=== PATIENT | female | born 1980 | race Caucasian/White ===

== ENCOUNTER 2016-08-17 11:53 | Emergency (ER) | payer SELFPAY ==
[~2016-08-17] VITALS: Ht 170.2 cm; Wt 116.5 kg
[~2016-08-17 11:53] MED LIST: TAB-TAB PO; TRAM50 PO; TYLE3 PO; ZOFR4TAB3 SL
[2016-08-17 11:55] VITALS: BP 141/86; PULSE 77; RESP 16; TEMP 98.2; O2SAT 99
--- NOTE | 2016-08-17 11:58 | PD ---
Physical Exam Time Seen by Provider: 11:57 Narrative 36 y/o female here with 5 days of cough and congestion. Vital signs reviewed. Seen at triage desk. Awaiting bed placement. Data Data Last Documented VS Vital Signs Date Time Temp Pulse Resp B/P Pulse Ox O2 Delivery O2 Flow Rate FiO2 08/17/16 11:55 98.2 77 16 141/86 99 Room Air [facility] Medical Record Reviewed: Yes Supervised Visit with ARLEN: No Jeramie Allen Aug 17, 2016 11:58
--- NOTE | 2016-08-17 12:21 | PD ---
HPI Chief Complaint: Cold / Flu Symptoms Time Seen by Provider: 12:30 Travel History International Travel<30 days: No Contact w/Intl Traveler<30days: No Traveled to known affect area: No History of Present Illness HPI 36-year-old female presents the emergency department with five-day history of upper respiratory type symptoms which have now settled in her chest. Patient has had hot and cold flashes but denies specific fever. She has had a productive cough until recently. Patient has pain in the chest from coughing , and audible wheezing but denies significant shortness of breath. No history of asthma in the past. Patient has had a history of bronchitis. She is a nonsmoker. She denies significant sore throat or upper respiratory symptoms at this time. She's been taking [id number] medications without improvement. She does have a history of nausea and vomiting at the beginning but not currently. Her pain is described as an 8 out of 10 with cough. She is allergic to morphine but no other drug allergies. PFSH Past Medical History ?: Not : 1 Para: 1 Miscarriage: 0 : 0 Ovarian Cysts: Yes (LEFT ) Dilation and Curettage (D&C): Yes Past Surgical History Abdominal Surgery: Yes () Section: Yes (x 1) Hysterectomy: Yes Social History Alcohol Use: No Tobacco Use: No Substance Use: No Allergies-Medications (Allergen,Severity, Reaction): Coded Allergies: Morphine (Verified Allergy, Severe, PAIN IN BODY, 05/26/11) Reported Meds & Prescriptions Reported Meds & Active Scripts Active Reported Levothyroxine (Levothyroxine Sodium) 50 Mcg Tab 50 Mcg PO DAILY Gabapentin 300 Mg Cap 300 Mg PO DAILY Omeprazole 20 Mg Tab 20 Mg PO DAILY Review of Systems Except as stated in HPI: all other systems reviewed are Neg General / Constitutional: Positive: Chills, No: Fever Eyes: No: Visual changes HENT: Positive: Sore Throat, Rhinitis, Rhinorrhea, Congestion, No: Headaches, Nosebleed, Neck Stiffness, Ear Discharge, Earache Cardiovascular: No: Chest Pain or Discomfort Respiratory: Positive: Cough, Shortness of Breath, Wheezing, Pleuritic Pain Gastrointestinal: Positive: Nausea, Vomiting, No: Diarrhea (now resolved.), Abdominal Pain Genitourinary: No: Dysuria Musculoskeletal: No: Pain Skin: No Rash Neurologic: No: Weakness Psychiatric: No: Depression Endocrine: No: Polydipsia Hematologic/Lymphatic: No: Easy Bruising Physical Exam Narrative GENERAL: Patient appears in mild distress. SKIN: Warm and dry. Normal color. Normal turgor. HEAD: Atraumatic. Normocephalic. No sinus tenderness. EYES: Pupils equal and round. No scleral icterus. No injection or drainage. ENT: No nasal bleeding or discharge. Mucous membranes pink and moist. TMs are clear bilaterally. Pharynx is normal. Airway is patent. NECK: Trachea midline. Supple and nontender. CARDIOVASCULAR: Regular rate and rhythm. RESPIRATORY: No accessory muscle use. Diffuse wheezes throughout to auscultation. Breath sounds equal bilaterally. No rhonchi or rales. GASTROINTESTINAL: Abdomen soft, non-tender, nondistended. Hepatic and splenic margins not palpable. MUSCULOSKELETAL: Extremities without clubbing, cyanosis, or edema. No obvious deformities. NEUROLOGICAL: Awake and alert. No obvious cranial nerve deficits. Motor grossly within normal limits. Five out of 5 muscle strength in the arms and legs. Normal speech. PSYCHIATRIC: Appropriate mood and affect; insight and judgment normal. Data Data Last Documented VS Vital Signs Date Time Temp Pulse Resp B/P Pulse Ox O2 Delivery O2 Flow Rate FiO2 08/17/16 11:55 98.2 77 16 141/86 99 Room Air Orders Prednisone (Deltasone) (08/17/16 12:45) Albuterol-Ipratropium Neb (Duoneb Neb) (08/17/16 12:45) Azithromycin (Zithromax) (08/17/16 12:45) Ceftriaxone Inj (Rocephin Inj) (08/17/16 12:45) Lidocaine 1% Inj (50 Ml) (Xylocaine 1% I (08/17/16 12:45) [facility] Medical Decision Making Medical Screen Exam Complete: Yes Emergency Medical Condition: Yes Differential Diagnosis Upper respiratory infection. Bronchitis. Wheezing. Narrative Course Patient is medically stable at time of exam. Chest x-ray is not felt warranted at this time based on patient's history and physical. Patient is given DuoNeb 1 Patient is given prednisone 60 mg by mouth. Patient is given first dose of azithromycin 500 mg by mouth as well as Rocephin 1000 mg IM. Patient will be continued on azithromycin 500 mg daily 5 days. Patient also continued on prednisone 20 mg twice a day 5 days. Patient is given albuterol metered-dose inhaler 2 puffs every 6 hours when necessary wheezing. Patient can take Tylenol as needed for pain or fever. Patient is to rest and push fluids and follow up if symptoms do not worsen over the next several days. Diagnosis Primary Impression: Acute wheezy bronchitis Referrals: [facility] Primary Care Physician Patient Instructions: Acute Bronchitis (ED), General Instructions, How to Use a Metered-Dose Inhaler (ED), Prednisone (By mouth) Additional Instructions: Chest x-ray is not felt warranted at this time based on patient's history and physical. Patient is given DuoNeb 1 Patient is given prednisone 60 mg by mouth. Patient is given first dose of azithromycin 500 mg by mouth as well as Rocephin 1000 mg IM. Patient will be continued on azithromycin 500 mg daily 5 days. Patient also continued on prednisone 20 mg twice a day 5 days. Patient is given albuterol metered-dose inhaler 2 puffs every 6 hours when necessary wheezing. Patient can take Tylenol as needed for pain or fever. Patient is to rest and push fluids and follow up if symptoms do not worsen over the next several days. Med/Other Pt SpecificInfo: Prescription(s) given Scripts Prednisone 20 Mg Tab20 Mg PO BID #10 TAB Prov:Melo Betts MD 08/17/16 Azithromycin 500 Mg Pbl420 Mg PO DAILY #3 TAB Prov:Melo Betts MD 08/17/16 Albuterol 18 GM Inh (Ventolin Hfa 18 GM Inh)90 Mcg/Act Aer2 Puff INH Q4-6H PRN ( SHORTNESS OF BREATH) #1 INHALER Prov:Melo Betts MD 08/17/16 Disposition: 01 DISCHARGE HOME Condition: Stable Carlos Saeed Aug 17, 2016 12:21
[2016-08-17] MEDS ORDERED: GABA300C5 PO (12:35)
[2016-08-17] MEDS ORDERED: LEVO50TA4 PO (12:35)
[2016-08-17] MEDS ORDERED: OMEP20TA PO (12:35)
[2016-08-17] MEDS ORDERED: LIDOCAINE HCL 1% 50 ML VIAL INFIL ONE (12:45)
[2016-08-17] MEDS ORDERED: cefTRIAXone 500 MG VIAL IM ONE (12:45)
[2016-08-17] MEDS ORDERED: AZITHROMYCIN 250 MG TAB PO ONE (12:45)
[2016-08-17] MEDS ORDERED: RESP: ALBUTEROL 2.5 MG/IPRATROPIUM 0.5 MG NEB (SCH) INH ONE (12:45)
[2016-08-17] MEDS ORDERED: predniSONE 20 MG TAB PO ONE (12:45)
[2016-08-17] MEDS ORDERED: PRED20 PO (13:33)
[2016-08-17] MEDS ORDERED: VENTAER INH (13:33)
[2016-08-17] MEDS ORDERED: AZIT500T2 PO (13:33)
== END 2016-08-17 13:49 | disposition home or self-care (01) ==
LOC: NEPK 11:53
DX: J20.9 Acute bronchitis, unspecified (principal)
CPT/HCPCS: 94664; 96372; 99284; J0696; J7512

== ENCOUNTER 2017-07-22 11:44 | Emergency (ER) | payer SELFPAY ==
[~2017-07-22] VITALS: Ht 170.2 cm; Wt 114.0 kg
[~2017-07-22 11:44] MED LIST changes: +AZIT500T2 PO; +GABA300C5 PO; +LEVO50TA4 PO; +OMEP20TA93 PO; +PRED20 PO; -TAB-TAB PO; -TRAM50 PO; -TYLE3 PO; +VENTAER INH; -ZOFR4TAB3 SL
[2017-07-22 11:52] VITALS: BP 133/77; PULSE 84; RESP 18; TEMP 98.2; O2SAT 98
[2017-07-22] MEDS ORDERED: SODIUM CHLOR 0.9% 1000 ML INJ 1,000 ML IV ONE (12:28)
[2017-07-22] MEDS ORDERED: diphenhydrAMINE HCL 50 MG/ML VIAL IVP ONE (12:30)
[2017-07-22] MEDS ORDERED: DEXAMETHASONE SOD PHOS 20 MG/5 ML VIAL IV PUSH ONE (12:30)
[2017-07-22] MEDS ORDERED: SODIUM CHLORIDE 0.9% FLUSH 10 ML FLUSH IVF PRN (12:30)
[2017-07-22] MEDS ORDERED: KETOROLAC TROMETHAMINE 30 MG/ML (IVP) VIAL IVP ONE (12:30)
[2017-07-22] MEDS ORDERED: PROCHLORPERAZINE INJ 10 MG/2 ML VIAL IVP ONE (12:30)
--- NOTE | 2017-07-22 12:40 | PD ---
HPI Chief Complaint: Headache Time Seen by Provider: 12:09 Travel History International Travel<30 days: No Contact w/Intl Traveler<30days: No Traveled to known affect area: No History of Present Illness HPI 37-year-old woman presents emerged from complaining of headache. Said migraines in the past and this feels similar but has been much more persistent and severe than her typical migraines. Patient feels generally ill like she has an infection and thinks that this was causing the headache to become worse. She has phonophobia and photophobia which is typical for her. Headache is in a bandlike distribution around her entire head. She had nausea but no vomiting. No fevers or chills. Review of systems positive for a little bit of spots of blood in the urine which she states is atypical for her. She states that she is followed for adrenal disease, but is taking just herbs and vitamins 4. States she also has low thyroid, and early menopause. She had a hysterectomy which was young for cervical cancer but the left one ovary. She states her family does tend to have menopause early. She has some visual changes that she describes as intermittent blurry vision that she attributes to her adrenal disease. No other complaints. History Past Medical History Narrative Medical Reported history of low thyroid, adrenal dysfunction, menopause Influenza Vaccination: No : 1 Para: 1 Dilation and Curettage (D&C): Yes Social History Alcohol Use: No Tobacco Use: No Allergies-Medications (Allergen,Severity, Reaction): Coded Allergies: morphine (Unverified Allergy, Severe, PAIN IN BODY, 07/22/17) Reported Meds & Prescriptions Reported Meds & Active Scripts Active No Active Prescriptions or Reported Medications Review of Systems Except as stated in HPI: all other systems reviewed are Neg Physical Exam Narrative GENERAL: Well-appearing 37-year-old woman, no acute distress. SKIN: Focused skin assessment warm/dry. HEAD: Atraumatic. Normocephalic. EYES: Pupils equal and round. No scleral icterus. No injection or drainage. ENT: No nasal bleeding or discharge. Mucous membranes pink and moist. NECK: Trachea midline. No JVD. No meningismus per CARDIOVASCULAR: Regular rate and rhythm. No murmur appreciated. RESPIRATORY: No accessory muscle use. Clear to auscultation. Breath sounds equal bilaterally. GASTROINTESTINAL: Abdomen soft, non-tender, nondistended. Hepatic and splenic margins not palpable. MUSCULOSKELETAL: No obvious deformities. No clubbing. No cyanosis. No edema. NEUROLOGICAL: Awake and alert. No obvious cranial nerve deficits. Motor grossly within normal limits. Normal speech. PSYCHIATRIC: Appropriate mood and affect; insight and judgment normal. Data Data Last Documented VS Vital Signs Date Time Temp Pulse Resp B/P (MAP) Pulse Ox O2 Delivery O2 Flow Rate FiO2 07/22/17 12:46 76 18 122/77 (92) 99 Room Air 07/22/17 11:52 98.2 Orders Orders Complete Blood Count With Diff (07/22/17 12:28) Comprehensive Metabolic Panel (07/22/17 12:28) Ct Brain W/O Iv Contrast(Rout) (07/22/17 12:28) Ecg Monitoring (07/22/17 12:28) Iv Access Insert/Monitor (07/22/17 12:28) Oximetry (07/22/17 12:28) Sodium Chloride 0.9% Flush (Ns Flush) (07/22/17 12:30) Ketorolac Inj (Toradol Inj) (07/22/17 12:30) Prochlorperazine Inj (Compazine Inj) (07/22/17 12:30) Diphenhydramine Inj (Benadryl Inj) (07/22/17 12:30) Sodium Chlor 0.9% 1000 Ml Inj (Ns 1000 M (07/22/17 12:28) Dexamethasone Inj (Decadron Inj) (07/22/17 12:30) Urinalysis - C+S If Indicated (07/22/17 12:49) Labs Laboratory Tests Test 07/22/17 12:40 07/22/17 12:51 White Blood Count 4.6 TH/MM3 Red Blood Count 4.46 MIL/MM3 Hemoglobin 14.5 GM/DL Hematocrit 41.9 % Mean Corpuscular Volume 93.9 FL Mean Corpuscular Hemoglobin 32.4 PG Mean Corpuscular Hemoglobin Concent 34.5 % Red Cell Distribution Width 13.9 % Platelet Count 311 TH/MM3 Mean Platelet Volume 7.2 FL Neutrophils (%) (Auto) 46.8 % Lymphocytes (%) (Auto) 40.9 % Monocytes (%) (Auto) 9.2 % Eosinophils (%) (Auto) 2.1 % Basophils (%) (Auto) 1.0 % Neutrophils # (Auto) 2.2 TH/MM3 Lymphocytes # (Auto) 1.9 TH/MM3 Monocytes # (Auto) 0.4 TH/MM3 Eosinophils # (Auto) 0.1 TH/MM3 Basophils # (Auto) 0.0 TH/MM3 CBC Comment DIFF FINAL Differential Comment Blood Urea Nitrogen 11 MG/DL Creatinine 1.17 MG/DL Random Glucose 77 MG/DL Total Protein 7.3 GM/DL Albumin 4.0 GM/DL Calcium Level 8.8 MG/DL Alkaline Phosphatase 73 U/L Aspartate Amino Transf (AST/SGOT) 27 U/L Alanine Aminotransferase (ALT/SGPT) 23 U/L Total Bilirubin 0.3 MG/DL Sodium Level 140 MEQ/L Potassium Level 4.4 MEQ/L Chloride Level 106 MEQ/L Carbon Dioxide Level 26.7 MEQ/L Anion Gap 7 MEQ/L Estimat Glomerular Filtration Rate 53 ML/MIN Urine Color YELLOW Urine Turbidity HAZY Urine pH 5.0 Urine Specific [place] 1.028 Urine Protein NEG mg/dL Urine Glucose (UA) NEG mg/dL Urine Ketones TRACE mg/dL Urine Occult Blood NEG Urine Nitrite NEG Urine Bilirubin NEG Urine Urobilinogen 2.0 mg/dL Urine Leukocyte Esterase NEG Urine RBC 1 /hpf Urine WBC 2 /hpf Urine Squamous Epithelial Cells 2 /hpf Urine Bacteria OCC /hpf Urine Hyaline Casts 1 /lpf Urine Mucus FEW /lpf Microscopic Urinalysis Comment CULT NOT INDICATED MDM Medical Decision Making Medical Screen Exam Complete: Yes Emergency Medical Condition: Yes Interpretation(s) LABS: CBC is unremarkable. CMP negative UA generally unremarkable. Head CT is negative. Differential Diagnosis Migraine, bleed, mass, other Narrative Course Medical decision making Is a 37-year-old woman presents to the emergency department with migraine 5 days, history of migraine. This is likely her typical migraine. She does have these other concerning symptoms including multiple endocrine dysfunctions with some persistent headache that could suggest pituitary mass. I think this is unlikely. She has no primary care physician or follow-up in the near future. Will check CT head just ensure there is no large space-occupying mass. Otherwise supportive treatment for migraines. Basic labs and urine given the hematuria. Outpatient follow-up. Diagnosis Primary Impression: Migraine headache Additional Instructions: Follow-up with your primary doctor when you return home. Return to the emergency department for any new or worsening symptoms. Med/Other Pt SpecificInfo: No Change to Meds Scripts No Active Prescriptions or Reported Meds Disposition: 01 DISCHARGE HOME Condition: Rob Villalobos MD Jul 22, 2017 12:40
[2017-07-22 12:46] VITALS: BP 122/77; PULSE 76; RESP 18; O2SAT 99
[2017-07-22 13:08] LABS: AUTOMATED NEUTROPHIL # 2.2 TH/MM3 (1.8-7.7); EOSINOPHIL # 0.1 TH/MM3 (0-0.4); EOSINOPHIL % 2.1 % (0.0-4.0); HEMATOCRIT 41.9 % (35.0-46.0); HEMOGLOBIN 14.5 GM/DL (11.6-15.3); LYMPH % 40.9 % (9.0-44.0); LYMPHOCYTE # 1.9 TH/MM3 (1.0-4.8); MEAN CELL VOLUME 93.9 FL (80.0-100.0); MEAN CORPUSCULAR HEMOGLOBIN 32.4 PG (27.0-34.0); MEAN CORPUSCULAR HGB CONC 34.5 % (32.0-36.0); MEAN PLATELET VOLUME 7.2 FL (7.0-11.0); MONO % 9.2 % (0.0-8.0); MONOCYTE # 0.4 TH/MM3 (0-0.9); NEUT % 46.8 % (16.0-70.0); PLATELET COUNT 311 TH/MM3 (150-450); RED BLOOD COUNT 4.46 MIL/MM3 (4.00-5.30); RED CELL DISTRIBUTION WIDTH 13.9 % (11.6-17.2); WHITE BLOOD COUNT 4.6 TH/MM3 (4.0-11.0)
--- NOTE | 2017-07-22 13:16 | RADRPT ---
EXAM DATE: 07/22/2017 1:10 PM EDT AGE/SEX: 37 years / Female INDICATIONS: Patient complains of headache with nausea for seven days. CLINICAL DATA: This is the patient's initial encounter. Patient reports that signs and symptoms have been present for 1 week and indicates a pain score of 7/10. MEDICAL/SURGICAL HISTORY: . migranes Hysterectomy. RADIATION DOSE: 36.55 CTDI (mGy) COMPARISON: No prior exams available for comparison. TECHNIQUE: CT of the head without contrast. Using automated exposure control and adjustment of the mA and/or kV according to patient size, radiation dose was kept as low as reasonably achievable to ob tain optimal diagnostic quality images. FINDINGS: Cerebrum: The ventricles are normal for age. No evidence of midline shift, mass lesion, hemorrhage or acute infarction. No extraaxial fluid collections are seen. Posterior Fossa: The cerebellum and brainstem are intact. The 4th ventricle is midline. The cerebe llopontine angle is unremarkable. Extracranial: The visualized portion of the orbits is intact. Skull: The calvaria is intact. No evidence of skull fracture. CONCLUSION: 1. Negative CT Head non contrast. Electronically signed by: Esa Wills MD 07/22/2017 1:15 PM EDT
[2017-07-22 14:02] LABS: BILIRUBIN, URINE NEG (NEG); BLOOD, URINE NEG (NEG); GLUCOSE,URINE NEG (NEG); HYALINE CAST, URINE 1 /lpf (RARE); KETONE, URINE TRACE mg/dL (NEG); MUCUS URINE FEW /lpf (OCC); NITRITE,URINE NEG (NEG); SQUAMOUS EPITHELIAL CELL URINE 2 /hpf (0-5); URINE COLOR YELLOW (YELLW/STRAW); URINE LEUKOCYTE ESTERASE NEG (NEG)
[2017-07-22 14:04] LABS: BACTERIA, URINE OCC /hpf
[2017-07-22 14:14] LABS: ALKALINE PHOSPHATASE 73 U/L (45-117); ALT (GPT) 23 U/L (10-53); TOTAL PROTEIN 7.3 GM/DL (6.4-8.2)
[2017-07-22 14:15] LABS: BICARBONATE 26.7 MEQ/L (21.0-32.0); BLOOD UREA NITROGEN 11 MG/DL (7-18); CALCIUM 8.8 MG/DL (8.5-10.1); CHLORIDE 106 MEQ/L (98-107); CREATININE 1.17 MG/DL (0.50-1.00); GLOMERULAR FILTRATION RATE 53 ML/MIN (>89); GLUCOSE,RANDOM 77 MG/DL (74-106); SODIUM (NA) 140 MEQ/L (136-145)
[2017-07-22 14:16] LABS: AST (GOT) 27 U/L (15-37)
[2017-07-22 15:57] LABS: TOTAL BILIRUBIN ADULT 0.3 MG/DL (0.2-1.0)
== END 2017-07-22 16:20 | disposition home or self-care (01) ==
LOC: NEPD 11:44
DX: G43.909 Migraine, unspecified, not intractable, without status migrainosus (principal); R11.0 Nausea; E27.9 Disorder of adrenal gland, unspecified
CPT/HCPCS: 70450; 80053; 81001; 85025; 96374; 96375; 99284; J0780; J1100; J1200; J1885; J7030